=== PATIENT | male | born 1995 ===

== ENCOUNTER 2017-05-27 20:55 | Emergency (ER) | payer BC ==
[2017-05-27] MEDS ORDERED: Amoxicillin PO (*) 500 MG CAP PO ONE (21:20)
--- NOTE | 2017-05-27 21:25 | UC ---
Dental HPI - HPI Summary HPI Summary: dental pain x 3 day pain right upper back molar x 3 days , + facial swelling increase pain with chewing , no fever , no chills - History of Current Complaint Chief Complaint: UCDentalProblem Stated Complaint: DENTAL COMPLAINT Time Seen by Provider: 05/27/17 21:17 Hx Obtained From: Patient Onset/Duration: Gradual Onset, Lasting Days - 3, Still Present Severity: Moderate Aggravating: Cold, Chewing Dental: 1 - pain , tenderness - Allergies/Home Medications Allergies/Adverse Reactions: Allergies Allergy/AdvReac Type Severity Reaction Status Date / Time No Known Allergies Allergy Verified 05/27/17 21:14 Home Medications: Home Medications Wwsalti-[id number]-[id number] [Excedrin Migraine] 2 tab PO ONCE PRN 05/27/17 [ History Confirmed 05/27/17] PMH/Surg Hx/FS Hx/Imm Hx Previously Healthy: Yes - Surgical History Surgical History: None - Family History Known Family History: Negative: Diabetes - Social History Alcohol Use: Rare Substance Use Type: None Smoking Status (MU): Never Smoked Tobacco Review of Systems Constitutional: Negative Skin: Negative Eyes: Negative ENT: Dental Pain Respiratory: Negative Cardiovascular: Negative All Other Systems Reviewed And Are Negative: Yes Physical Exam Triage Information Reviewed: Yes Appearance: Well-Appearing, No Pain Distress, Well-Nourished Vital Signs: Initial Vital Signs Temp 99.8 F 05/27/17 21:07 Pulse 91 05/27/17 21:07 Resp 14 05/27/17 21:07 BP 128/80 05/27/17 21:07 Pulse Ox 99 05/27/17 21:07 Vital Signs Reviewed: Yes Eyes: Positive: Conjunctiva Clear ENT: Positive: Normal ENT inspection, Hearing grossly normal, Pharynx normal, Other: - right upper facial swelling Dental: Positive: Percussion Tenderness @ - #4, Gross Decay/Caries @ - #4 Neck: Positive: Supple, Nontender, No Lymphadenopathy Respiratory: Positive: Chest non-tender, Lungs clear, Normal breath sounds Cardiovascular: Positive: RRR, No Murmur, Pulses Normal Abdominal Exam: Normal Dental Complaint Course/Dx - Differential Dx/Diagnosis Provider Diagnoses: dental pain Discharge - Discharge Plan Condition: Stable Disposition: HOME Prescriptions: Amoxicillin PO (*) [Amoxicillin 875 MG (*)] 875 mg PO BID #20 tab Patient Education Materials: Toothache (ED) Additional Instructions: follow up with your dentist marcy
[2017-05-27 21:28] VITALS: BP 128/80
== END 2017-05-27 21:36 | disposition home or self-care (01) ==
LOC: UCCORT 20:55
DX: K08.89 Other specified disorders of teeth and supporting structures (principal)
CPT/HCPCS: 99202; A9270-GY; G0463